=== PATIENT | male | born 1960 | race Caucasian/White ===

== ENCOUNTER 2016-12-10 00:01 | Outpatient (CLI) | payer MEDICARE ==
[2016-12-10] MEDS ORDERED: NIASPAN750 MG PO (10:09)
[2016-12-10] MEDS ORDERED: LIPITOR20 MG PO (10:09)
[2016-12-10] MEDS ORDERED: AMBIEN10 MG PO (10:10)
[2016-12-10] MEDS ORDERED: AVAPRO150 MG PO (10:10)
[2016-12-10] MEDS ORDERED: NORCO 7.5/325 T1 TA1 PO (10:10)
[2016-12-10] MEDS ORDERED: LIDOCAINE 2 %100 ML PO (10:11)
[2016-12-10] MEDS ORDERED: MULTIPLE VITAMI1 TA1 PO (10:12)
== END 2016-12-10 23:59 | disposition home or self-care (01) ==
LOC: D.PAN 00:01 → D.OPS 12-13 07:30 → D.PAN 12-13 07:30 → D.OPS 12-13 08:00 → D.PAN 12-13 08:00 → EDSTATUS 12-13 08:00 → D.OPS 12-13 08:30
DX: Z01.812 Encounter for preprocedural laboratory examination (principal); Z01.811 Encounter for preprocedural respiratory examination; Z01.810 Encounter for preprocedural cardiovascular examination; Z53.9 Procedure and treatment not carried out, unspecified reason

== ENCOUNTER 2017-02-17 07:00 | Day surgery (SDC) | payer MEDICARE ==
[2017-02-16 14:41] LABS: HEMATOCRIT 48.5 % (42.0-54.0); HEMOGLOBIN 16.6 g/dL (13.5-17.5); MCH 31.7 pg (26.0-34.0); MCHC 34.2 g/dL (31.0-37.0); MCV 92.7 fL (80.0-100.0); MEAN PLATELET VOLUME 10.6 fL (7.4-10.4); RBC 5.23 10x6/uL (4.20-6.10); RDW 12.9 % (11.5-14.5)
[~2017-02-17] VITALS: Ht 170.2 cm; Wt 104.3 kg
[~2017-02-17 07:00] MED LIST: AMBIEN10 MG PO; AVAPRO150 MG PO; DOXEPIN HCL10 MG PO; LIDOCAINE 2 %100 ML PO; LIPITOR20 MG PO; MULTIPLE VITAMI1 TA1 PO; NIASPAN750 MG PO; NORCO 7.5/325 T1 TA1 PO; OMEPRAZOLE20 M1 PO; TESTOSTERON200 MG/ML IM
[2017-02-17 07:45] VITALS: Ht 170.2 cm; Wt 104.3 kg
[2017-02-17] MEDS ORDERED: HYDROCODONE-APA1 TAB PO (10:42)
--- NOTE | 2017-02-17 12:39 | NUR ---
1215 IV DC WITH CAther tip intact
--- NOTE | 2017-03-17 14:01 | OP ---
PATIENT NAME: JAMIN JUSTICE MEDICAL RECORD: [id number] :62 LOCATION:[facility] ADMISSION DATE: SURGEON: LESTER MERLOS MD DATE OF OPERATION: 02/17/2017 PREOPERATIVE DIAGNOSES: Left shoulder impingement syndrome with acromioclavicular arthritis and rotator cuff tear. POSTOPERATIVE DIAGNOSES: Left shoulder impingement syndrome with acromioclavicular arthritis and rotator cuff tear. PROCEDURES: 1. Left shoulder arthroscopy with arthroscopic rotator cuff repair. 2. Arthroscopic distal clavicle excision done under separate incision. 3. Arthroscopic subacromial decompression, acromioplasty and bursectomy. SURGEON: Lester Merlos MD ANESTHESIA: General. INTRAOPERATIVE COMPLICATIONS: None. SUMMARY OF PATHOLOGIC FINDINGS: Consistent with preoperative radiographs as well as diagnosis, the patient had the above-mentioned findings. OPERATIVE SUMMARY IN DETAIL: After obtaining the appropriate preoperative orthopedic surgery consents as well as anesthetic consultation, evaluation and clearance, the patient was brought to the operating room and placed on the operating table in supine position. After adequate general laryngeal mask airway was administered, the patient was placed in a right lateral decubitus position. All pressure points were well padded to include down leg peroneal pad as well as axillary roll. The patient was held firmly to the operating table using the vacuum pack suction system. Left upper extremity and shoulder were prepped and draped in routine sterile fashion. The arm was held in the Arthrex traction boom at 30 degrees of forward flexion, 30 degrees of abduction, 10 pounds of traction laterally. Arthroscopy was established in the glenohumeral joint from a posterior portal. Anterior portal was established in the anterior safe interval. Diagnostic arthroscopy did reveal the above findings. A transarthroscopic rotator cuff tear portal was created for debridement of the rotator cuff portion on the articular side that appeared to be attritional. Attention was then turned to the subacromial space. Union tissue ablation system was utilized to denude the undersurface of the acromion of all soft tissue elements and then a 5-0 barrel bur was used to perform acromioplasty at the level of acromioclavicular joint. Through a separate anterior portal, 1-cm of the distal clavicle was excised under arthroscopic evaluation. Lastly, the rotator cuff repair was attended to. The rotator cuff tear was grasped with #2 FiberTape and pulled back out to the insertional site on the greater tuberosity. It was affixed with double row fixation using the Arthrex double row kit. This resulted in excellent reapproximation. Having completed this, arthroscopy portals were closed in routine interrupted fashion using 4-0 Prolene. Sterile dressings were applied. The patient was awakened, taken to the recovery room in stable condition. All final needle and sponge counts were correct. TRANSINT:[id number] Voice Confirmation ID: [id number] DOCUMENT ID: [id number] OPERATIVE REPORT [id number] JAMIN JUSTICE MD, LESTER CHEATHAM at 1401 CC: [id number] DICTATION DATE: 03/14/17 1631 [facility] HELPER: 03/14/17 [id number] [facility] 02/17/[address] [id number]
== END 2017-02-17 12:30 | disposition home or self-care (01) ==
LOC: D.OPS 07:00 → D.PAN 09:00 → D.OPS 09:00 → D.PAN 09:45 → D.OPS 09:45
PROVIDERS: Anesthesiology
DX: M75.42 Impingement syndrome of left shoulder (principal); I10 Essential (primary) hypertension; G47.30 Sleep apnea, unspecified; K21.9 Gastro-esophageal reflux disease without esophagitis; Z01.812 Encounter for preprocedural laboratory examination

== ENCOUNTER → 2017-02-28 14:55 | Outpatient (CLI) | payer MEDICARE ==
[2017-02-17 07:45] VITALS: BMI 36.1
[~2017-02-28 14:55] MED LIST changes: +HYDROCODONE-APA1 TAB PO
[2017-02-28 15:59] LABS: ALBUMIN 3.6 g/dL (3.4-5.0); ANION GAP 14.6 mmol/L (8-16); BILIRUBIN - TOTAL 0.37 mg/dL (0.2-1.3); CALCIUM 8.7 mg/dL (8.5-10.1); CARBON DIOXIDE 24.3 mmol/L (21.0-32.0); CREATININE - SERUM 1.1 mg/dL (0.6-1.3); MAGNESIUM - SERUM 1.8 mg/dL (1.8-2.4); POTASSIUM - SERUM 3.9 mmol/L (3.5-5.1); PROTEIN - SERUM 6.9 g/dL (6.4-8.2)
== END | disposition home or self-care (01) ==
LOC: D.CN 13:30
PROVIDERS: Orthopaedic Surgery
DX: I49.9 Cardiac arrhythmia, unspecified (principal)

== ENCOUNTER → 2017-04-06 17:09 | Outpatient (CLI) | payer MEDICARE ==
[2017-02-17 07:45] VITALS: BMI 36.1
[2017-04-06 17:58] LABS: CHOL - HDL RATIO 3.4 ratio (2.3-4.9)
== END | disposition home or self-care (01) ==
LOC: D.LABREF 17:09
PROVIDERS: Orthopaedic Surgery
DX: I10 Essential (primary) hypertension (principal)

== ENCOUNTER 2017-07-26 10:30 | Emergency (ER) | payer MEDICARE ==
[2017-02-17 07:45] VITALS: BMI 36.1
== END 2017-07-26 12:20 | disposition home or self-care (01) ==
LOC: D.ER 10:30
DX: S16.1XXA Strain of muscle, fascia and tendon at neck level, initial encounter (principal); V43.52XA Car driver injured in collision with other type car in traffic accident, initial encounter; Y93.89 Activity, other specified; Y92.410 Unspecified street and highway as the place of occurrence of the external cause; S39.012A Strain of muscle, fascia and tendon of lower back, initial encounter; K21.9 Gastro-esophageal reflux disease without esophagitis; I10 Essential (primary) hypertension

== ENCOUNTER → 2019-06-22 15:10 | Outpatient (CLI) | payer MEDICARE ==
[2017-02-17 07:45] VITALS: BMI 36.1
== END | disposition home or self-care (01) ==
LOC: D.MRI 11:00
PROVIDERS: ATTEND Orthopaedic Surgery
DX: S83.231A Complex tear of medial meniscus, current injury, right knee, initial encounter (principal)